=== PATIENT | female | born 1995 | race African-American/Black ===

== ENCOUNTER 2019-05-17 13:27 | Emergency (ER) | payer MEDICARE, OTHER ==
[~2019-05-17] VITALS: Ht 172.7 cm; Wt 75.0 kg
[2019-05-17] MEDS ORDERED: OXCARBAZEPINE 300MG TABLET PO STA (13:47)
[2019-05-17] MEDS ORDERED: LORAZEPAM 2MG/ML CPJ ONE (13:47)
[2019-05-17] MEDS ORDERED: LORAZEPAM 2MG/ML CPJ IV ONE (14:00)
[2019-05-17 15:24] LABS: BASOPHILS % 0.6 % (0.0-2.0); EOSINOPHILS % 0.3 % (0.0-5.0); HEMATOCRIT. 38.5 % (36.0-48.0); HEMOGLOBIN. 12.9 g/dL (12.0-16.0); LYMPHOCYTES % 12.3 % (20.0-50.0); MEAN CORPUSCULAR HEMOGLOBIN 29.1 pg (28.0-32.0); MEAN CORPUSCULAR VOLUME 86.9 fL (81.0-99.0); MEAN PLATELET VOLUME 9.4 fl (7.4-10.4); MONOCYTES % 8.5 % (2.0-8.0); NEUTROPHILS % 78.3 % (40.0-76.0); PLATELET 273 x1000/uL (130-400); RED BLOOD CELL COUNT 4.43 mill/uL (4.2-5.4); RED CELL DISTRIBUTION WIDTH 15.7 % (11.6-14.6)
[2019-05-17 15:31] LABS: CHLORIDE 110 mEq/L (98-107)
[2019-05-17 16:44] VITALS: BP 22/74
== END 2019-05-17 16:45 | disposition home or self-care (01) ==
LOC: ER 13:35
DX: G40.909 Epilepsy, unspecified, not intractable, without status epilepticus (principal); R03.0 Elevated blood-pressure reading, without diagnosis of hypertension
CPT/HCPCS: 36415; 80053; 85025; 96374; 99283; J2060

== ENCOUNTER 2020-02-21 21:28 | Emergency (ER) | payer MEDICARE, MEDICAID ==
[~2020-02-21] VITALS: Ht 167.6 cm; Wt 59.0 kg
[2020-02-21 21:37] VITALS: BP 126/80
== END 2020-02-22 01:13 | disposition left against medical advice (07) ==
LOC: ER 21:28
DX: Z53.21 Procedure and treatment not carried out due to patient leaving prior to being seen by health care provider (principal)